=== PATIENT | male | born 2000 | race Caucasian/White ===

== ENCOUNTER 2021-05-20 00:59 | Emergency (ER) | payer OTHER ==
[2021-05-20] MEDS ORDERED: Lidocaine 1% 30 ML SDV INJECT ONE (01:20)
[2021-05-20] MEDS ORDERED: Bacitracin Oint 1 GM U/D Packet TOP ONE (01:54)
[2021-05-20] MEDS ORDERED: Amoxicillin/Clavulanate K 500-125 MG Tab PO ONE (01:55)
== END 2021-05-20 02:10 | disposition home or self-care (01) ==
LOC: DL.ED 00:59
DX: S01.511A Laceration without foreign body of lip, initial encounter (principal); W22.8XXA Striking against or struck by other objects, initial encounter; Y93.67 Activity, basketball
CPT/HCPCS: 12011; 99282; A9270